=== PATIENT | female | born 1980 | race African-American/Black ===

== ENCOUNTER 2021-02-13 11:25 | Emergency (ER) | payer OTHER ==
[2021-02-13 11:34] VITALS: RESP 16
[2021-02-13] MEDS ORDERED: ASPIRIN 81 MG PO STA (12:19)
[2021-02-13 12:44] LABS: Basophils % (A) 1 %; Eosinophils # (A) 0.1 k/uL (0-0.7); Eosinophils % (A) 1 %; HCT 41.7 % (34.0-46.0); HGB 13.7 gm/dL (11.4-16.0); Lymphocytes # (A) 2.5 k/uL (1.0-4.8); Lymphocytes % (A) 37 %; MCH 30.7 pg (25.0-35.0); MCHC 32.7 g/dL (31.0-37.0); MCV 93.9 fL (80.0-100.0); Monocytes # (A) 0.3 k/uL (0-1.0); Monocytes % (A) 5 %; Neutrophils # (A) 3.8 k/uL (1.3-7.7); Neutrophils % (A) 56 %; Platelet Count 270 k/uL (150-450); RBC 4.44 m/uL (3.80-5.40); RDW 12.5 % (11.5-15.5); WBC 6.8 k/uL (3.8-10.6)
[2021-02-13 12:53] LABS: ALT 20 U/L (4-34); AST 28 U/L (14-36); African American GFR (CKD) >90 (>60 ml/min/1.73 sqM); Albumin 4.8 g/dL (3.5-5.0); Alkaline Phosphatase 76 U/L (38-126); Anion Gap 10 mmol/L; Blood Urea Nitrogen 9 mg/dL (7-17); Calcium 10.3 mg/dL (8.4-10.2); Carbon Dioxide 24 mmol/L (22-30); Chloride 107 mmol/L (98-107); Glucose 80 mg/dL (74-99); Magnesium 2.1 mg/dL (1.6-2.3); Non-African American GFR(CKD) 89 (>60 ml/min/1.73 sqM); Potassium 4.3 mmol/L (3.5-5.1); Sodium 141 mmol/L (137-145); Total Bilirubin 0.9 mg/dL (0.2-1.3); Total Protein 7.6 g/dL (6.3-8.2)
[2021-02-13 12:55] LABS: Partial Thromboplastin Time 22.7 sec (22.0-30.0); Prothrombin Time 10.4 sec (9.0-12.0)
--- NOTE | 2021-02-13 12:56 | XR ---
EXAMINATION TYPE: XR chest 1V portable DATE OF EXAM: 02/13/2021 COMPARISON: NONE HISTORY: Chest pain, left arm pain, history of heart attack TECHNIQUE: Single frontal view of the chest is obtained. FINDINGS: Heart size is within normal limits. Overlying leads. No pleural effusion, focal consolidat ion or pneumothorax. Cervical spine hardware. IMPRESSION: 1. No acute pulmonary disease.
[2021-02-13] MEDS ORDERED: LORazepam 2 MG/ML INJ IV STA (13:16)
[2021-02-13 14:30] LABS: Appearance,Urine Clear (Clear); Bilirubin,Urine Negative (Negative); Blood,Urine Negative (Negative); Color,Urine Yellow; Glucose,Urine (UA) Negative (Negative); Ketones,Urine Negative (Negative); Leukocyte Esterase,Urine Negative (Negative); Nitrite,Urine Negative (Negative); PH, Urine 6.5 (5.0-8.0); Protein,Urine Negative (Negative); Specific Gravity,Urine 1.025 (1.001-1.035); Urobilinogen,Urine <2.0 mg/dL (<2.0)
--- NOTE | 2021-02-13 15:20 | ED ---
Chest Pain HPI - General Chief Complaint: Chest Pain Stated Complaint: chest pain Time Seen by Provider: 02/13/21 12:13 Source: patient Mode of arrival: ambulatory Limitations: no limitations - History of Present Illness Initial Comments: Patient is a 40-year-old female with past medical history for she describes as chronic chest wall pain as well as "a small heart attack" who presents emergency Department complaining of acute on chronic chest pain. Patient states the chest pain started the last 3 weeks. She describes it as sharp and located over the left chest under her armpit. She states it does not move. It is more or less constant but worse with movement. States she can make it hurt worse by pressing on it. She denies any lightheadedness, blurry vision, difficult in breathing, abdominal pain, nausea, vomiting. States she does have a history of anxiety. She denies any palliative factors for the patient's chest pain. She has no ot her acute complaints at this time. She presents because she is concerned for this chest pain when she has attempted to treat with Tylenol and Motrin at home but does not appear to be effective.. - Related Data Home Medications Medication Instructions Recorded Confirmed Acetaminophen [Tylenol Arthritis] 650 mg PO Q4H PRN 02/13/21 02/13/21 Aspirin EC [Ecotrin Low Dose] 81 mg PO DAILY@62902/13/21 02/13/21 Calc/Magne 1 tab PO DIRECTED 02/13/21 02/13/21 Chlorpheniramine Maleate 4 mg PO Q4H PRN 02/13/21 02/13/21 [Chlor-Trimeton] Ibuprofen [Motrin] 600 mg PO Q6H PRN 02/13/21 02/13/21 Multivitamins, Thera [Multivitamin 1 tab PO DAILY@59902/13/21 02/13/21 (formulary)] Thiamine [Vitamin B-1] 100 mg PO DAILY@59902/13/21 02/13/21 busPIRone HCl [Buspar] 10 mg PO TID 02/13/21 02/13/21 traZODone HCL [Desyrel] 50 - 2,150 mg PO HS 02/13/21 02/13/21 Previous Rx's Medication Instructions Recorded Aspirin 81 mg PO DAILY #30 chewable 02/13/21 Lidocaine 5% Patch [Lidoderm 5% 1 patch TOPICAL DAILY #7 patch 02/13/21 Patch] Allergies Allergy/AdvReac Type Severity Reaction Status Date / Time No Known Allergies Allergy Verified 02/13/21 13:56 Review of Systems ROS Statement: Those systems with pertinent positive or pertinent negative responses have been documented in the HPI. Review of Systems: CONST: Denies fever EYES: Denies blurry vision ENT: Denies nasal congestion C/V: Endorses chest pain RESP: Denies shortness of breath GI: Denies abdominal pain : Denies dysuria SKIN: Denies rash. MSK: Denies joint pain. NEURO: Denies headache ROS Other: All systems not noted in ROS Statement are negative. EKG Findings - EKG Comments: EKG Findings:: 12-lead Electrocardiogram Interpretation Note. EKG was reviewed and interpreted by myself. 12-lead ECG performed at 1147 is interpreted by me as revealing normal sinus rhythm at a rate of 65 beats per minute. [place] is normal. [place] interval is 138 ms, QRS duration 72 ms, QTc is 401 ms.. There were no ST or T wave abnormalities to suggest myocardial ischemia or injury. R wave progression across the precordium was satisfactory. By my interpretation this EKG is non-diagnostic for acute ischemia. Past Medical History Past Medical History: Myocardial Infarction (PR) History of Any Multi-Drug Resistant Organisms: None Reported Past Surgical History: Back Surgery, Tubal Ligation Past Psychological History: Anxiety, PTSD Smoking Status: Current every day smoker Past Alcohol Use History: None Reported Past Drug Use History: Cocaine General Exam - General Exam Comments Initial Comments: General: Appears in no acute distress. HEAD: Normal with no signs of head trauma. EYES: PERRLA, EOMI, conjunctiva normal, no discharge. ENT: Hearing grossly intact, normal oropharynx. RESPIRATORY: Clear breath sounds bilaterally. No wheezes, rales, or rhonchi. C/V: Regular rate and rhythm. S1 and S2 auscultated. No peripheral edema. Peripheral pulses are 2+ intact throughout. Patient has reproducible pain on palpation. ABD: Abd is soft, nontender, nondistended EXT: Normal range of motion, no obvious deformity SKIN: No rashes or lesions observed on exposed skin. NEURO: Alert and oriented 4. No focal deficits. Limitations: no limitations Course Vital Signs 02/13/21 02/13/21 02/13/21 11:31 12:15 13:23 Temperature 97.9 F Pulse Rate 84 92 Pulse Rate [ 81 Credit Assistant ] Respiratory 16 16 Rate Blood Pressure 121/77 121/84 O2 Sat by Pulse 100 98 Oximetry 02/13/21 15:35 Temperature 98.0 F Pulse Rate 90 Pulse Rate [ Credit Assistant ] Respiratory 16 Rate Blood Pressure 118/78 O2 Sat by Pulse 98 Oximetry Chest Pain MDM - MDM Based on the patient's presentation and physical exam, I'm concerned for possible cardiac etiology for her current chest pain. However it does appear to be acute on chronic chest wall pain. There is been going on for weeks. Therefore we will be obtaining a cardiac workup including troponin, EKG, chest x-ray and basic laboratory studies. Patient will be admitted and aspirin. She is requesting Ativan and she feels anxious and therefore she'll be given 0.5 mg IV once. She was in agreement with this plan. She'll be connected to Continuous cardiac monitoring while she is here in the department. Heart score is 0. Patient's EKG revealed no acute signs of ischemic changes. Chest x-ray revealed no acute cardiopulmonary process. Laboratory studies are remarkable for a normal troponin. The remainder of her laboratory studies are unremarkable. On reevaluation, patient seems improved. Her chest pain is gone. I believe it is safe for her to be discharged home. She was in agreement this plan. She will be given a prescription for aspirin at her request as well as lidocaine patches at her request. Patient was discharged home in improved condition. Disposition Clinical Impression: Chest pain of unknown etiology Disposition: HOME SELF-CARE Condition: Good Instructions (If sedation given, give patient instructions): Chest Pain (ED) Prescriptions: Aspirin 81 mg PO DAILY #30 chewable Lidocaine 5% Patch [Lidoderm 5% Patch] 1 patch TOPICAL DAILY #7 patch Is patient prescribed a controlled substance at d/c from ED?: No Referrals: Nonstaff,Physician [Primary Care Provider] - 1-2 days
[2021-02-13 15:36] VITALS: BP 118/78; PULSE 90; TEMP 98
== END 2021-02-13 15:35 | disposition home or self-care (01) ==
LOC: EC 11:25
DX: R07.89 Other chest pain (principal); G89.29 Other chronic pain; I25.2 Old myocardial infarction; F41.9 Anxiety disorder, unspecified; F17.200 Nicotine dependence, unspecified, uncomplicated; F14.90 Cocaine use, unspecified, uncomplicated; Z79.82 Long term (current) use of aspirin; Z79.1 Long term (current) use of non-steroidal anti-inflammatories (NSAID); Z79.899 Other long term (current) drug therapy
CPT/HCPCS: 36415; 71045; 80053; 81003; 81025; 83735; 84484; 85025; 85610; 85730; 93005; 96374; 99285